=== PATIENT | female | born 1965 | race Caucasian/White ===

== ENCOUNTER 2024-08-02 13:31 | Emergency (ER) | payer OTHER, SELFPAY ==
[2024-08-02 13:35] VITALS: BP 151/81
[2024-08-02 14:00] LABS: INR 0.93; PT 12.8 Sec (11.4-14.6)
[2024-08-02 14:01] LABS: APTT 25.8 Sec (23.4-35.0)
[2024-08-02 14:04] LABS: % Basophils 0.7 % (0-2); % Eosinophils 1.7 % (0-6); % Immature Granulocytes 0.4 % (0-0.5); % Monocytes 7.2 % (1.7-9.3); Absolute Basophils 0.1 10^3/uL (0-0.2); Absolute Eosinophils 0.2 10^3/uL (0-0.7); Absolute Immature Granulocytes 0.1 10^3/uL (0-0.05); Absolute Lymphocytes 4.5 10^3/uL (1.2-3.4); Absolute Monocytes 0.9 10^3/uL (0.1-0.6); Absolute Neutrophils 6.4 10^3/uL (1.4-6.5); Hemoglobin 15.3 g/dL (12.0-16.0); Mean Corpuscular Hgb 31.1 pg (27.0-31.0); Mean Corpuscular Volume 91.5 fL (81.0-99.0); Mean Platelet Volume 9.5 fL (7.4-10.4); Nucleated Red Blood Cells % 0 %; Platelet Count 195 10^3/uL (130-400); Red Blood Cell Count 4.92 10^6/uL (4.20-5.40)
[2024-08-02 14:09] LABS: ALT (SGPT) 23 U/L (0-35); AST (SGOT) 25 U/L (14-36); Albumin 4.5 g/dl (3.5-5.0); Alkaline Phosphatase 83 U/L (38-126); Blood Urea Nitrogen 18 mg/dl (7-17); Carbon Dioxide 27 mmol/L (22-30); Chloride 99 mmol/L (98-107); Glucose 241 mg/dl (70-99); Potassium 3.9 mmol/L (3.5-5.1); Sodium 136 mmol/L (135-145); Total Bilirubin 0.5 mg/dl (0.2-1.3); Total Protein 7.7 g/dl (6.3-8.2); eGFR > 60.00
[2024-08-02 14:14] LABS: Troponin I < 0.012 ng/ml
[2024-08-02 14:54] VITALS: BP 132/96
[2024-08-02 15:00] VITALS: BP 119/72
--- NOTE | 2024-08-02 15:23 | ED.GENMED ---
History of Present Illness
General
Chief Complaint: Chest Pain
Source: patient
Exam Limitations: none
Time Seen by Provider: 08/02/24 15:11
Nursing documentation reviewed up to this point in time: agreed with
History of Present Illness
History of Present Illness:
Patient to ED with complaint of left side chest pain. Symptoms started yesterday. States pain was worse with expiration. Today pain is random and feels like a sharp stabing pain that lasts for just seconds. No aggravating or alleviating factors
Denies any SOB, cough, n/v/diaphoresis. Denies fever/chills, recent illness. Brought to ED by family for eval.
Past History
Past History
ED Past Medical History: HTN, Hypercholesterolemia, NIDDM, Psychiatric (Anxiety, depression) and Other (Herniated disks, kidney stones, arthritis)
ED Past Surgical History: Appendectomy, Gynecological (Hysterectomy), Orthopedic and Other (Lithotripsy, cystoscopy with stone removal and stent placement April 2010, August 2010.)
Social History
Tobacco: Former smoker (quit x 7 years)
Alcohol: Occasional
Drug: Marijuana (daily)
Personal:
Living: with family
Employment: Not employed
Family History
Family History: Diabetes and Other
Review of Systems
Review of Systems
Allergies reviewed?: Yes
All Other Systems: ROS reviewed and negative except as documented in HPI and ROS
Constitutional: Reports no symptoms
EENT: Reports no symptoms
Cardiac: Reports chest pain (intermittent sharp stabbing pain to left lateral chest)
ABD/GI: Reports no symptoms
: Reports no symptoms
Musculoskeletal: Reports no symptoms
Skin: Reports no symptoms
Neurological: Reports no symptoms
Psychiatric: Reports no symptoms
Phy Exam
General Physical Exam
General Presentation: well appearing and no apparent distress
General age: appears stated age
General Skin: warm and dry
General Habitus: normal
General Mental: alert
Cardiovascular Exam
Cardiovascular Exam: regular rate/rhythm and no edema
Pulmonary Exam
Pulmonary Exam: lungs clear, no respiratory distress and chest non tender
Gastrointestinal Exam
Gastrointestinal Exam: non tender and soft
Musculoskeletal Exam
Musculoskeletal Exam: full ROM, no edema, neuro vasc intact and other (Denies any calf pain)
Skin Exam
Skin Exam: normal color, warm/dry, no rash and no petechia
Psychiatric Exam
Psychiatric Exam: normal mood/affect
Scores
Heart Score for Chest Pain Patients
STEMI patient?: No
History: Slightly or Non-Suspicious
ECG: Normal
Age: >45 - <65 years
Risk Factors: 1 or 2 Risk Factors
Troponin: </= Normal Limit
Heart Score for Chest Pain Patients: 2
Heart Score Risk: 2.5% MACE over next 6 weeks
Course
Orders/Labs/Results
Orders:
Orders
08/02/24 13:32
Electrocardiogram (*1) Urgent
Reason for Study: Chest Pain
EKG- Treatment ONCE
08/02/24 13:41
Complete Blood Count/With Diff Urgent
Comprehensive Metabolic Panel Urgent
Protime/PTT Urgent
Troponin I Urgent
08/02/24 15:22
CR Chest - 2 Views Urgent
Comment:
Reason For Exam: left chest pain
08/02/24 15:37
D-Dimer Urgent
Abnormal Lab Results
08/02/24
13:41
WBC 12.0 H 10^3/uL
(4.8-10.8)
MCH 31.1 H pg
(27.0-31.0)
Abs Immat Gran (auto) 0.1 H 10^3/uL
(0-0.05)
Absolute Lymphs (auto) 4.5 H 10^3/uL
(1.2-3.4)
Absolute Monos (auto) 0.9 H 10^3/uL
(0.1-0.6)
BUN 18 H mg/dl
(7-17)
Glucose 241 H mg/dl
(70-99)
08/02/24 13:41
08/02/24 13:41
Vital Signs
Initial and Last Documented VS:
Initial Vital Signs
Temp Pulse Resp BP Pulse Ox
98.1 F 88 18 151/81 94
08/02/24 13:35 08/02/24 13:35 08/02/24 13:35 08/02/24 13:35 08/02/24 13:35
Last Documented Vital Signs
Temp Pulse Resp BP Pulse Ox
97.5 F 80 15 119/72 98
08/02/24 15:40 08/02/24 15:40 08/02/24 15:40 08/02/24 15:40 08/02/24 15:40
*Critical Care Note
Total Time (30-74mins, 75-104mins- exclusive of procedures): Not Applicable
Update Note
Update Note:
Patient to ED wtih complaint of sharp stabbing left chest pain. Labs reviewed. troponin, ddimer neg. EKG NSR. No concerning findings on exam. No findings to explain her pain. Discussed possibilty of shingles as causes of discomfort. SHe will
continue to monitor for any evidence of rash and follow up with her PCP. Given instructions on s/s to return to ED and she is agreeable to plan.
ED Attending Note
-
Portions of this chart may have been created with voice recognition software.� Occasional wrong word or��sound alike� substitutions may have occurred due to the inherent limitations of voice recognition software.
Discharge Plan
Departure
Patient Disposition: Home (Routine Discharge)
Date of Disposition: 08/02/24
Time of Disposition: 16:29
Patient with high blood pressure during this ER visit?: No
Condition: Good
Covid-19: Not Applicable
Discharge Problem:
Chest pain of unknown etiology
Instructions: Chest Pain PCP Follow Up
Prescriptions:
No Action
dextroamphetamine-amphetamine [Adderall] 20 MG tablet
20 mg PO BID
loratadine 10 MG capsule
10 mg PO DAILY
clonidine HCl 0.1 MG tablet
0.1 mg PO HS
citalopram 20 MG tablet
40 mg PO DAILY
gabapentin 300 MG capsule
900 mg PO BID
omeprazole 20 MG capsule,delayed release(DR/EC)
20 mg PO DAILY
metformin 500 MG tablet
1,000 mg PO BID
hydrochlorothiazide 25 MG tablet
25 mg PO DAILY
aspirin 81 mg Capsule
81 mg PO DAILY
alendronate [Fosamax] 10 mg Tablet
10 mg PO WEEKLY
Ozempic 0.25 mg or 0.5 mg (2 mg/3 mL) Pen Injector
0.25 mg SC QWEEK
Rx Instructions:
for 4 weeks
Referrals:
Tracy Keys DO [Family Provider] - Follow up in 2-3 days
Activity Restrictions/Additional Instructions:
Continue to monitor for any signs of skin rash, follow up with your PCP. Return to the emergency department immediately for any changes in/worsening of your symptoms.
Interventions
Interventions:
*Risk Screen - Suicide Last Done: 08/02/24 13:35
*General Assessment Last Done: 08/02/24 13:35
*Neglect/Abuse Screening Last Done: 08/02/24 13:35
ED- Fall Risk Assessment Last Done: 08/02/24 15:40
*ED COVID-19 Vaccine History Last Done: 08/02/24 13:35
ED- Cardiac Assessment Last Done: 08/02/24 15:40
Discharge Date and Time
Print Language: CHADIAN
[2024-08-02 15:40] VITALS: BP 119/72; BMI 26.6
== END 2024-08-02 16:35 | disposition home or self-care (01) ==
LOC: EMR 13:31
PROVIDERS: Emergency Medicine; Nurse Practitioner; EMERGENCY PHYSICIAN Emergency Medicine; FAMILY PHYSICIAN Internal Medicine
DX: R07.89 Other chest pain (principal); Z87.891 Personal history of nicotine dependence
CPT/HCPCS: 99285; 71046; 80053; 84484; 85025; 85379; 85610; 85730; 93005

== ENCOUNTER 2024-11-03 06:23 | Day surgery (SDC) | payer OTHER, SELFPAY ==
[2024-11-03 09:54] LABS: Glucose - Point of Care 141 mg/dl (70-99)
== END 2024-11-03 11:38 | disposition home or self-care (01) ==
LOC: GI 06:23
PROVIDERS: ATTENDING PHYSICIAN Internal Medicine Gastroenterology
DX: Z12.11 Encounter for screening for malignant neoplasm of colon (principal); K57.30 Diverticulosis of large intestine without perforation or abscess without bleeding; K63.5 Polyp of colon; K62.1 Rectal polyp; Z86.0101 Personal history of adenomatous and serrated colon polyps
CPT/HCPCS: 45385; 45380; 88305; 82962